=== PATIENT | male | born 1980 | race Caucasian/White ===

== ENCOUNTER 2016-12-19 22:41 | Inpatient (IN) | payer OTHER ==
[~2016-12-19] VITALS: Ht 185.4 cm; Wt 101.8 kg
[~2016-12-19 22:41] MED LIST: ADULT LOW DOSE81 M1 PO; BACTRIM,SEPT1 TABLET PO; CHOLESTEROL MEDS PO; COLACE100 MG PO; DELTASONE20 MG PO; DILANTIN100 MG PO; FLEXERIL10 MG PO; GABAPENTIN100 MG PO; HYDROCODON-ACE1 EAC7 PO; IBUPROFEN; IBUPROFEN800 MG PO; Inderal LA PO; LEXAPRO20 MG PO; MELOXICAM15 MG PO; MOTRIN600 MG PO; MOTRIN800 MG PO; NAPROSYN500 MG PO; NOHOMEMEDS; NORCO 5/3251 TABLET PO; NORCO 7.5/321 TABLET PO; NORTRIPTYLINE H50 MG PO; PERCOCET 5-3251 EACH PO; PERCOCET 5/31 TABLET PO; PHENYTOIN SODI200 MG PO; PREDNISONE50 MG PO; PROVENTIL HFA6.7 GM IH; PROZAC20 MG PO; TORADOL10 MG PO; TRAMADOL HCL50 MG PO; TRILEPTAL150 MG PO; Tylenol/Codeine #3 PO; ULTRAM50 MG PO; VALIUM5 MG PO; VICODIN 5-3001 EACH PO; ZITHROMAX Z-PA250 MG PO; ZOCOR10 MG PO; [UNRECOGNIZED DRUG - OTHER] PO
[2016-12-19 23:25] LABS: HEMATOCRIT 41.9 % (38.0-50.0); MCH 31.3 PG (29.0-34.0); MCHC 33.9 G/DL (30.0-36.0); MCV 92.5 FL (86-99); MEAN PLAT.VOLUME 9.9 uM^3 (9.0-12.4); PLATELET COUNT 234 K/uL (156-360); RBC DIS.WIDTH-CV 12.5 % (11.8-14.6); RBC DIS.WIDTH-SD 42.1 % (39-53); RED BLOOD COUNT 4.53 M/uL (4.00-5.50); WHITE BLOOD COUNT 6.8 K/uL (4.1-10.2)
[2016-12-20 00:17] LABS: CHLORIDE 103 mEq/L (99-109); POTASSIUM 4.1 mEq/L (3.7-5.4); SODIUM 138 mEq/L (136-147)
[2016-12-20 00:19] LABS: GLUCOSE 102 mg/dL (70-99)
[2016-12-20 00:21] LABS: ANION GAP 7 MEQ/L (2-14)
[2016-12-20 00:22] LABS: SERUM ETHYL ALCOHOL < 10 mg/dL
[2016-12-20 00:23] LABS: GFR ESTIMATE (CALCULATED) > 59 mL/min/
[2016-12-20 00:26] LABS: SALICYLATE < 5.0 MG/DL (15-30)
[2016-12-20 00:53] LABS: UREA NITROGEN (BUN) 12 mg/dL (9-23)
[2016-12-20 02:13] LABS: AMPHETAMINE NEGATIVE (500 ng/mL); BARBITURATES PRESUMPTIVE POSITIVE (200 ng/mL); BENZODIAZEPINES PRESUMPTIVE POSITIVE (150 ng/mL); COCAINE PRESUMPTIVE POSITIVE (150 ng/mL); INTERNAL CONTROLS VALID? YES; METHADONE NEGATIVE (200 ng/mL); METHAMPHETAMINE NEGATIVE (500 ng/mL); OPIATES (MORPHINE) PRESUMPTIVE POSITIVE (100 ng/mL); OXYCODONE NEGATIVE (100 ng/mL); PHENCYCLIDINE NEGATIVE (25 ng/mL); PROPOXYPHENE NEGATIVE (300 ng/mL); THC CANNABINOIDS NEGATIVE (50 ng/mL); TRICYCLIC ANTIDEPRESSANTS NEGATIVE (300 ng/mL)
[2016-12-20 02:14] LABS: ADD MEDTOX COMMENT Y
[2016-12-20 03:59] LABS: BARBITUATES QUANT VALUE 0 NG/ML; BENZODIAZEPINES, URINE SCREEN POSITIVE (200 ng/mL)
[2016-12-20] MEDS ORDERED: DILANTIN100 MG PO (04:55)
[2016-12-20] MEDS ORDERED: GABAPENTIN100 MG PO (04:55)
[2016-12-20] MEDS ORDERED: ARYMO ER15 MG PO (04:56)
[2016-12-20] MEDS ORDERED: MORPHINE SULFAT15 MG PO (04:57)
[2016-12-20] MEDS ORDERED: PROZAC40 MG PO (04:58)
[2016-12-20 05:15] VITALS: BP 118/80
[2016-12-20 08:06] VITALS: BP 145/71
== END 2016-12-20 14:30 | disposition home or self-care (01) | DRG 885 ==
LOC: EME 22:41 → 1WEST 12-20 00:45 → EDOF 12-20 00:45 → 1WEST 12-20 05:03
PROVIDERS: Emergency Medicine
DX: F20.9 Schizophrenia, unspecified (principal); R45.851 Suicidal ideations; F32.9 Major depressive disorder, single episode, unspecified; F41.9 Anxiety disorder, unspecified; G40.909 Epilepsy, unspecified, not intractable, without status epilepticus; M54.9 Dorsalgia, unspecified; J45.909 Unspecified asthma, uncomplicated; Z91.5 Personal history of self-harm; Z86.73 Personal history of transient ischemic attack (TIA), and cerebral infarction without residual deficits; F17.200 Nicotine dependence, unspecified, uncomplicated
CPT/HCPCS: 71020; 80048; 84999; 85027; 90839; 94640; 94640 76; 97165 GO; 99281; 99285; G0480; J7512